=== PATIENT | female | born 1965 ===

== ENCOUNTER 2020-01-19 15:55 | Outpatient (REF) | payer OTHER, SELFPAY ==
--- NOTE | 2020-01-19 | XR_ITS ---
EXAMINATION: XR HAND, BILATERAL CLINICAL INFORMATION: Polyarthralgia COMPARISON: None TECHNIQUE: 3 views of each hand FINDINGS: Bone mineralization is normal. No periarticular osteopenia or erosions. No significant joint space narrowing. No suspicious soft tissue calcifications. No acute osseous abnormalities. IMPRESSION: Right hand: Normal. Left hand: Normal.
--- NOTE | 2020-01-19 | XR_ITS ---
EXAMINATION: XR TIBIA AND FIBULA, RIGHT CLINICAL INFORMATION: Polyarthralgia COMPARISON: None TECHNIQUE: AP and lateral views of the right lower leg FINDINGS: Bone mineralization is normal. No fracture. No focal osseous lesion or suspicious soft tissue calcification. IMPRESSION: Normal right lower leg.
== END 2020-01-19 15:56 | disposition home or self-care (01) ==
LOC: HO.XRAY 15:55
PROVIDERS: PCP Internal Medicine; Visit Provider Student in an Organized Health Care Education/Training Program
DX: M25.59 Pain in other specified joint (principal)
CPT/HCPCS: 73130; 73590

== ENCOUNTER → 2020-01-20 14:35 | Outpatient (BNVA) | payer OTHER, SELFPAY | PROVIDERS: PCP Internal Medicine; Visit Provider Student in an Organized Health Care Education/Training Program | DX: M79.642 Pain in left hand (principal); M79.641 Pain in right hand; M79.661 Pain in right lower leg | CPT/HCPCS: 99213 ==

== ENCOUNTER 2021-08-28 09:53 | Outpatient (REF) | payer OTHER, SELFPAY ==
--- NOTE | ~2021-08-28 | MM_ITS ---
EXAMINATION: BONE DENSITOMETRY CLINICAL INDICATION: Asymptomatic menopausal state. COMPARISON: None (current study represents initial baseline exam). TECHNIQUE: Using a [employer]i DXA System (software version: 13.1) manufactured by [employer], dual-energy x-ray absorptiometry was performed of the lumbar spine and left hip. The images are of good technical quality. Summary results are attached. FINDINGS: AP SPINE L1-L4: BMD 1.070 g/cm2, Z-score -0.4, T-score -0.9, normal. LEFT FEMUR, NECK: BMD 1.078 g/cm2, Z-score 1.1, T-score 0.3, normal. LEFT FEMUR, TOTAL: BMD 1.153 g/cm2, Z-score 1.6, T-score 1.2, normal. IDENTIFIED RISK FACTORS: Menopause. HISTORY OF FRACTURE: None listed. MEDICATIONS: Calcium supplements or multivitamin, vitamin D. MM/XR DEXA axial skeleton IMPRESSION: 1. DIAGNOSIS: Normal bone density based on the lowest T-score value of -0.9 in the lumbar spine applying World Health Organization criteria. 2. 10-YEAR FRACTURE RISK PREDICTION, FRAX: According to the guidelines, FRAX calculation should only be performed on patients in the osteopenia bone density category. Therefore, FRAX was not performed on this patient. 3. Treatment Recommendations: NOF guidelines recommend consideration for treatment in postmenopausal women and men age 50 and older presenting with the following: -A hip or vertebral (clinical or morphometric) fracture. -T-score less than or equal to -2.5 at the femoral neck or spine after appropriate evaluation to exclude secondary causes. -Low bone mass at the hip or spine and a 10-year fracture probability by FRAX of greater than or equal to 3% for hip fracture or greater than or equal to 20% for major osteoporotic fracture based on the [place] adapted WHO algorithm. 4. Other Recommendations: All treatment decisions require clinical judgment and consideration of individual patient factors, including patient preferences, comorbidities, previous drug use, risk factors not captured in the FRAX model (e.g. frailty, falls, vitamin D deficiency, increased bone turnover, interval significant decline in bone density) and possible under or overestimation of fracture risk by FRAX. FUTURE SCAN RECOMMENDATION: People with diagnosed cases of osteoporosis or at high risk for fracture should have regular bone mineral density tests. For patients eligible for Medicare, routine testing is allowed once every 2 years. The testing frequency can be increased to one year for patients who have rapidly progressing disease, those who are receiving or discontinuing medical therapy to restore bone mass, or have additional risk factors.
--- NOTE | ~2021-08-28 | MM_ITS ---
EXAMINATION: MM SCREENING DIGITAL BREAST TOMOSYNTHESIS, BILATERAL CLINICAL INFORMATION: Screening. Asymptomatic. The lifetime risk of breast cancer based on the Tyrer-Cuzick Model is 9%. COMPARISON: Mammography: 08/19/2016, 06/13/2015, 05/25/2012 TECHNIQUE: Digital breast tomosynthesis is performed in both the craniocaudal and mediolateral oblique views along with computer-aided detection (CAD). Synthesized 2D images are generated from the tomosynthesis. Additional left cleavage view is provided. FINDINGS: The breasts are almost entirely fatty (ACR BI-RADS breast composition Category a). There are no significant masses, abnormal calcifications, or other abnormalities. Background stromal markings are stable. No developing density. No architectural abnormality. No significant changes. MM/MM tomosynthesis screening BI IMPRESSION: No mammographic evidence of malignancy. ASSESSMENT: BI-RADS 1: Negative RECOMMENDATION: Routine annual mammography screening. This patient's information was entered into a reminder system with a target due date for their next mammogram.
== END 2021-08-28 09:54 | disposition home or self-care (01) ==
LOC: HO.MAMMO 09:53
PROVIDERS: Visit Provider Internal Medicine
DX: Z12.31 Encounter for screening mammogram for malignant neoplasm of breast (principal); Z13.820 Encounter for screening for osteoporosis; Z78.0 Asymptomatic menopausal state
CPT/HCPCS: 77063; 77067; 77080

== ENCOUNTER → 2021-11-07 10:15 | Outpatient (BNVA) | payer OTHER, SELFPAY | PROVIDERS: PCP Internal Medicine; Visit Provider Physician Assistant | DX: Z12.11 Encounter for screening for malignant neoplasm of colon (principal); K21.9 Gastro-esophageal reflux disease without esophagitis | CPT/HCPCS: 99202; 99212 ==

== ENCOUNTER 2022-03-27 08:33 | Day surgery (SDC) | payer OTHER, SELFPAY ==
[2022-03-21 11:30] VITALS: BMI 25.0
--- NOTE | 2022-03-26 11:59 | HO.ANESPROP2 ---
Documented by User: Arlene Thomas NP 03/26/22 11:59 HPI - Anesthesia Eval Consult details Narrative: 56yo F for Colonoscopy PMFSH Active Problems Active Problems: All Active Problems (Updated 11/08/21 @ 15:17 by Jessica Truong PA-C) Colon cancer screening (Acute) Overweight (BMI 25.0-29.9) (Acute) GERD (gastroesophageal reflux disease) (Acute) Asthma (Acute) Allergic rhinitis (Acute) Right ear pain (Acute) Annual physical exam (Acute) Bilateral pendulous breasts (Acute) Chronic pain of both shoulders (Acute) Chronic thoracic back pain (Acute) Polyarthralgia (Acute) Past Medical History Medical History Allergic rhinitis Asthma GERD (gastroesophageal reflux disease) Overweight (BMI 25.0-29.9) Family History Family History Father Hypertension Mother Hypertension Asthma Family/Other Prostate cancer Colon cancer Lung cancer Stomach cancer Surgical History Surgical History History of cholecystectomy History of colposcopy History of esophagogastroduodenoscopy (EGD) Social History Social History Household Members: Spouse Housing: House Are you a primary healthcare recruiter to a significant other at home: No Do you presently have visiting nurse or other home services: No Alcohol intake: never Patient Tobacco Use Status: Never used Tobacco Second Hand Smoke Exposure: No Use of substances other than those prescribed or required for medical reasons: No Have you been hit, kicked, punched, or otherwise hurt by someone within the past year? If so, by whom?: No Are you DNR?: No Advance Directives: No Advance Directives Information Provided: Yes Advance Directives on File: No Recently lost weight without trying: No Nutrition Risks: No Nutritional Risk service: No Current occupational status: disabled Cognitive needs: No Hearing needs: No Vision needs: Yes Meds Allergies Allergy/AdvReac Type Severity Reaction Status Date / Time dicyclomine Allergy Severe ANAPHYLAXIS Verified 03/21/22 11:28 coconut oil Allergy Unknown Unknown Verified 11/07/21 10:46 house dust Allergy Unknown unknown Verified 11/07/21 10:46 pollen extracts Allergy Unknown Unknown Verified 11/07/21 10:46 cimetidine [From TAGAMET] AdvReac Intermediate NAUSEA AND Verified 03/21/22 11:28 VOMITING sucralfate [Carafate] AdvReac Intermediate Abdominal Verified 03/21/22 11:29 Pain apple, kiwi,pears, peach, Allergy Unknown Unknown Uncoded 11/07/21 10:46 avoc fruits Allergy Unknown Unknown Uncoded 11/07/21 10:46 soil Allergy Unknown Unknown Uncoded 11/07/21 10:46 Simethicone AdvReac Intermediate cramping, Uncoded 03/21/22 11:29 abdominal Home Medications Medication Instructions Recorded Confirmed Last Taken Type diphenhydramine HCl 25 mg tablet 25 mg PO Q6H PRN Allergy Symptoms 01/19/20 03/21/22 Unknown History (Benadryl Allergy) epinephrine 0.3 mg/0.3 mL 0.3 mg IM Q10M PRN Allergic 01/19/20 03/21/22 Unknown History injection, auto-injector (EpiPen) Reaction hydroxyzine pamoate 25 mg capsule 25 mg PO TID 01/19/20 07/19/21 Unknown History (Vistaril) ketotifen fumarate 0.025 % (0.035 1 drp ophthalmic (eye) BID 01/19/20 07/19/21 Unknown History %) eye drops (Allergy Eye (ketotifen)) omeprazole 20 mg tablet,delayed 20 mg PO DAILY 01/19/20 03/21/22 Unknown History release Exam Exam Date and Time: March 26, 2022 1159 Height,Weight and Vital Signs: Height 5 ft 5 in Weight 68.039 kg Assessment and Plan Assessment Anesthesia Assessment: Chart Reviewed Documented by User: Yahaira Rivers MD 03/27/22 08:56 PMFSH Past Medical History Medical History Allergic rhinitis Asthma GERD (gastroesophageal reflux disease) Overweight (BMI 25.0-29.9) Functional capacity: independent ambulation Patient : No Family History Family History Father Hypertension Mother Hypertension Asthma Family/Other Prostate cancer Colon cancer Lung cancer Stomach cancer Family history of problems with anesthesia: No Surgical History Surgical History History of cholecystectomy History of colposcopy History of esophagogastroduodenoscopy (EGD) History of Problems with Anesthesia: No Social History Social History Household Members: Spouse Housing: House Are you a primary healthcare recruiter to a significant other at home: No Do you presently have visiting nurse or other home services: No Alcohol intake: never Patient Tobacco Use Status: Never used Tobacco Second Hand Smoke Exposure: No Use of substances other than those prescribed or required for medical reasons: No Have you been hit, kicked, punched, or otherwise hurt by someone within the past year? If so, by whom?: No Are you DNR?: No Advance Directives: No Advance Directives Information Provided: Yes Advance Directives on File: No Recently lost weight without trying: No Nutrition Risks: No Nutritional Risk service: No Current occupational status: disabled Cognitive needs: No Hearing needs: No Vision needs: Yes Meds Allergies Allergy/AdvReac Type Severity Reaction Status Date / Time dicyclomine Allergy Severe ANAPHYLAXIS Verified 03/21/22 11:28 coconut oil Allergy Unknown Unknown Verified 11/07/21 10:46 house dust Allergy Unknown unknown Verified 11/07/21 10:46 pollen extracts Allergy Unknown Unknown Verified 11/07/21 10:46 cimetidine [From TAGAMET] AdvReac Intermediate NAUSEA AND Verified 03/21/22 11:28 VOMITING sucralfate [Carafate] AdvReac Intermediate Abdominal Verified 03/21/22 11:29 Pain apple, kiwi,pears, peach, Allergy Unknown Unknown Uncoded 11/07/21 10:46 avoc fruits Allergy Unknown Unknown Uncoded 11/07/21 10:46 soil Allergy Unknown Unknown Uncoded 11/07/21 10:46 Simethicone AdvReac Intermediate cramping, Uncoded 03/21/22 11:29 abdominal Home Medications Medication Instructions Recorded Confirmed Last Taken Type diphenhydramine HCl 25 mg tablet 25 mg PO Q6H PRN Allergy Symptoms 01/19/20 03/21/22 Unknown History (Benadryl Allergy) epinephrine 0.3 mg/0.3 mL 0.3 mg IM Q10M PRN Allergic 01/19/20 03/21/22 Unknown History injection, auto-injector (EpiPen) Reaction hydroxyzine pamoate 25 mg capsule 25 mg PO TID 01/19/20 07/19/21 Unknown History (Vistaril) ketotifen fumarate 0.025 % (0.035 1 drp ophthalmic (eye) BID 01/19/20 07/19/21 Unknown History %) eye drops (Allergy Eye (ketotifen)) omeprazole 20 mg tablet,delayed 20 mg PO DAILY 01/19/20 03/21/22 Unknown History release Exam Airway Mallampati Class: II TM Dist: >3cm Neck ROM: Full Heart: RRR Lungs: CTA Assessment and Plan Final Anesthetic Review Family History of Problems with Anesthesia: No History of Problems with Anesthesia: No ASA Class: II Final Preanesthetic Review: No Changes in Pt Med Stat, Meds/Allgs Chart Reviewed, Consent Obtained/Reviewed and Anes Risks/Benef Reviewed Patient Risk: Low Procedure Risk: Low Anesthetic Plan Anesthetic Plan: MAC: Disposition: Standard PACU
--- NOTE | 2022-03-27 08:49 | MHC.SHP ---
Pre-Procedural Eval Section A Date of Service: 03/27/22 Section B Chief Complaint: screening Details of Present Illness: 56 y.o F here for screening colo. No GI sx. Fam hx of breast cancer and colon cancer (grandmother). Present Medications: see Short Stay Collaborative assessment Medical History: Significant History (GERD, asthma, allergic rhinitis) History of Previous Operations: Relevant previous surgery/procedure and date(s) (Cholecystectomy, colposcopy ) Allergies: Allergies Allergy/AdvReac Type Severity Reaction Status Date / Time dicyclomine Allergy Severe ANAPHYLAXIS Verified 03/21/22 11:28 coconut oil Allergy Unknown Unknown Verified 11/07/21 10:46 house dust Allergy Unknown unknown Verified 11/07/21 10:46 pollen extracts Allergy Unknown Unknown Verified 11/07/21 10:46 cimetidine [From TAGAMET] AdvReac Intermediate NAUSEA AND Verified 03/21/22 11:28 VOMITING sucralfate [Carafate] AdvReac Intermediate Abdominal Verified 03/21/22 11:29 Pain apple, kiwi,pears, peach, Allergy Unknown Unknown Uncoded 11/07/21 10:46 avoc fruits Allergy Unknown Unknown Uncoded 11/07/21 10:46 soil Allergy Unknown Unknown Uncoded 11/07/21 10:46 Simethicone AdvReac Intermediate cramping, Uncoded 03/21/22 11:29 abdominal Review of Systems Review of Systems Comment: 10 point ROS obtained and negative Exam Exam Comment: Gen appear: No acute distress, well nourished HEENT: no icterus Chest: No overt resp distress Abd: soft, nontender, nondistended Psych: Stable affect, answering questions appropriately Neuro: A/Ox3 noted to move all extremities spontaneously Ext: no peripheral edema Plan Diagnosis/Plan: Unchanged I have reviewed the history and physical and performed a pertinent physical examination on my patient. No changes have occurred unless specified.
[2022-03-27 08:54] VITALS: BP 123/87; PULSE 86; RESP 18; TEMP 36.6; O2SAT 96
--- NOTE | 2022-03-27 08:54 | W.PM.OPN ---
Operative Note Operative Note Date of Service: 03/27/22 Narrative: Procedure: Colonoscopy Indication: Screening Endoscopist: Lucy Khan MD Anesthesia Provider: Dr Yahaira Atkins Anesthesia type: MAC Instrument: Olympus [id number]-H190L Consent: Indication, risks vs benefits, and alternatives were discussed with the patient who gave written informed consent to proceed. An automotive repair technician was utilized to assist with the consent. EKG, pulse, pulse oximetry and blood pressure were monitored throughout the procedure. Please see anesthesia flowsheet. Procedure: The patient was brought to the procedure room and placed in the left lateral decubitus position. IV medications were administered by the anesthesia provider in attendance. A digital rectal exam was performed which was normal. The colonoscope was then inserted through the anus and advanced through the colon to the cecum at 75 cm, and terminal ileum. Mucosa was carefully examined under high definition white light as the instrument was slowly withdrawn in a retrograde panoramic fashion. Retroflexion was performed in rectum. The procedure was not difficult. There were no immediate obvious complications. The quality of the prep was BBPS: 3+3+3 = excellent Withdrawal time 9 minutes. Limitations: No limitations. Findings: Mucosa: Normal to cecum and terminal ileum. Protruding lesions: Small internal hemorrhoids without stigmata of recent bleeding. Impression: 1. Normal colon and terminal ileum mucosa 2. Internal hemorrhoids Recommendations: - Repeat colonoscopy in 10 years for colorectal cancer screening
[2022-03-27] MEDS: Lactated Ringers 1,000 ML 100 ML IVCONT (08:55)
[2022-03-27 09:45] VITALS: BP 93/52; PULSE 83; RESP 15; TEMP 36.2; O2SAT 100
[2022-03-27 10:00] VITALS: BP 105/63; PULSE 76; RESP 15; O2SAT 95
[2022-03-27 10:18] VITALS: TEMP 36.4
--- NOTE | 2022-03-27 10:25 | HO.POSTANES ---
Post Anesthesia Evaluation Post Anesthesia Evaluation Vital Signs: Vital Signs Temp Pulse Resp BP Pulse Ox O2 Del Method O2 Flow Rate 03/27/22 10:18 97.5 F 03/27/22 10:00 76 15 105/63 95 Room Air 03/27/22 09:45 97.1 F 83 15 93/52 L 100 Nasal Cannula with ETCO2 3 03/27/22 08:54 97.8 F 86 18 123/87 96 Room Air Anesthesia: Monitored Mental Status: Awake Pain Control: Satisfactory Nausea/Vomiting: None Hydration: Adequate Anesthesia-Related Issues: No Anes. Related Issues
== END 2022-03-27 10:55 ==
LOC: HO.SSS 08:33
PROVIDERS: PCP Internal Medicine; Visit Provider Internal Medicine
PROC: 0DJD8ZZ Inspection of Lower Intestinal Tract, Via Natural or Artificial Opening Endoscopic (ICD-10-PCS; CPT 45378; principal; 2022-03-27 09:00)
DX: Z12.11 Encounter for screening for malignant neoplasm of colon (principal); K64.8 Other hemorrhoids; K21.9 Gastro-esophageal reflux disease without esophagitis; J45.909 Unspecified asthma, uncomplicated; Z79.51 Long term (current) use of inhaled steroids; Z79.899 Other long term (current) drug therapy; Z88.8 Allergy status to other drugs, medicaments and biological substances; Z90.49 Acquired absence of other specified parts of digestive tract
CPT/HCPCS: 45378

== ENCOUNTER → 2022-04-24 10:22 | Outpatient (BNVA) | payer OTHER, SELFPAY | PROVIDERS: PCP Internal Medicine; Visit Provider Physician Assistant | DX: K21.9 Gastro-esophageal reflux disease without esophagitis (principal); K58.9 Irritable bowel syndrome, unspecified; K44.9 Diaphragmatic hernia without obstruction or gangrene | CPT/HCPCS: 99212 ==

== ENCOUNTER 2022-09-05 10:42 | Outpatient (REF) | payer OTHER, SELFPAY ==
--- NOTE | ~2022-09-05 | MM_ITS ---
EXAMINATION: MM SCREENING DIGITAL BREAST TOMOSYNTHESIS, BILATERAL CLINICAL INFORMATION: Screening. Asymptomatic. The lifetime risk of breast cancer based on the Tyrer-Cuzick Model is 9%. COMPARISON: Mammography: 08/28/2021, 08/19/2016, 06/13/2015 TECHNIQUE: Digital breast tomosynthesis is performed in both the craniocaudal and mediolateral oblique views along with computer-aided detection (CAD). Synthesized 2D images are generated from the tomosynthesis. FINDINGS: The breasts are almost entirely fatty (ACR BI-RADS breast composition Category a). Background stromal markings are similar to prior studies. No developing density or architectural abnormality. There are no significant masses, abnormal calcifications, or other abnormalities. The axilla and skin contours are unremarkable. MM/MM tomosynthesis screening BI IMPRESSION: No mammographic evidence of malignancy. ASSESSMENT: BI-RADS 1: Negative RECOMMENDATION: Routine annual mammography screening. This patient's information was entered into a reminder system with a target due date for their next mammogram.
== END 2022-09-05 10:43 | disposition home or self-care (01) ==
LOC: HO.MAMMO 10:42
PROVIDERS: PCP Internal Medicine; Visit Provider Internal Medicine
DX: Z12.31 Encounter for screening mammogram for malignant neoplasm of breast (principal)
CPT/HCPCS: 77063; 77067

== ENCOUNTER 2023-01-19 12:12 | Outpatient (AMB) | payer OTHER, SELFPAY ==
[2023-01-19 12:32] VITALS: BP 120/82; PULSE 74; O2SAT 97; BMI 25.6
--- NOTE | 2023-01-19 12:32 | MHC.PC.OV ---
Vital Signs 01/19/23 12:32 Height 5 ft 5 in Weight 154 lb 2 oz BMI 25.6 BP 120/82 Blood Pressure Location Lt brachial Position Sitting Pulse 74 Pulse Source Pulse Oximeter Pulse Oximetry (%) 97 Oxygen Delivery Method Room Air Intake Visit Reasons: breast reduction Head Of Science Required: No Accompanied by: Self / Same As Patient Allergies dicyclomine Allergy (Severe, Verified 01/25/23 23:19) ANAPHYLAXIS coconut oil Allergy (Unknown, Verified 01/25/23 23:19) Unknown house dust Allergy (Unknown, Verified 01/25/23 23:19) unknown pollen extracts Allergy (Unknown, Verified 01/25/23 23:19) Unknown cimetidine [From TAGAMET] Adverse Reaction (Intermediate, Verified 01/25/23 23:19) NAUSEA AND VOMITING sucralfate [Carafate] Adverse Reaction (Intermediate, Verified 01/25/23 23:19) Abdominal Pain apple, kiwi,pears, peach, avoc Allergy (Unknown, Uncoded 01/25/23 23:19) Unknown fruits Allergy (Unknown, Uncoded 01/25/23 23:19) Unknown soil Allergy (Unknown, Uncoded 01/25/23 23:19) Unknown Simethicone Adverse Reaction (Intermediate, Uncoded 01/25/23 23:19) cramping, abdominal Medication List - Last Reconciled 01/26/23 by Gabriel Vang MD albuterol sulfate 90 mcg/actuation (ProAir HFA) 2 puffs inhalation Q6H PRN 30 days cetirizine 10 mg PO DAILY PRN 90 days cyclobenzaprine 10 mg PO TID PRN 30 days diphenhydramine HCl (Benadryl Allergy) 25 mg PO Q6H PRN epinephrine (EpiPen) 0.3 mg (0.3 mL) IM Q10M PRN fluticasone propionate 110 mcg/actuation (Flovent HFA) 1 puff inhalation BID 30 days fluticasone propionate 50 mcg/actuation (Flonase Allergy Relief) 1 spray intranasal DAILY hydroxyzine pamoate (Vistaril) 25 mg PO TID PRN ketotifen fumarate 0.025%(0.035%) (Allergy Eye (ketotifen)) 1 drp ophthalmic (eye) BID lansoprazole 30 mg PO DAILY 90 days methylcellulose (laxative) (Citrucel) 500 mg PO TID Tobacco use date assessed: 01/19/23 Dental Screening Dental Screen Date: 01/19/23 Did you have a dental visit in the last 12 months?: Yes Did you have a dental problem in the last 6 months where you did not have access to dental care?: No Was dental information given to patient?: Patient has dentist HPI breast reduction HPI Details Patient comes in today at the request of Dr. Cherry Pearce for a preoperative medical examination for clearance for surgery She is scheduled to undergo bilateral breast reduction surgery under general anesthesia on 02/19/2023 Patient states that she currently feels okay Still has chronic pain over her neck, over both shoulders and on her upper back that she feels are in large part, due to her large and heavy breasts and is hoping that her upcoming surgery will help alleviate a lot of her current pain States that she has a preop appointment with Dr. Pearce coming up in 02/09/2023 She denies any headaches or dizziness Denies any chest pains, no SOB No nausea/vomiting, no abdominal pain No change in bowel habits noted States that she also needs several of her Rx refilled today PFSH Medical History IBS (irritable bowel syndrome) Overweight (BMI 25.0-29.9) GERD (gastroesophageal reflux disease) Asthma Allergic rhinitis Surgical History History of colposcopy History of cholecystectomy History of esophagogastroduodenoscopy (EGD) Family History Father Hypertension Mother Hypertension Asthma Family/Other Prostate cancer Colon cancer Lung cancer Stomach cancer Social History Household Members: Spouse Housing: House Are you a primary child care director to a significant other at home: No Do you presently have visiting nurse or other home services: No Alcohol intake: never Patient Tobacco Use Status: Never used Tobacco Second Hand Smoke Exposure: No service: No Current occupational status: disabled Cognitive needs: No Hearing needs: No Vision needs: Yes Questionnaire PHQ-9 Over the last 2 weeks, how often have you been bothered by any of the following problems? 1. Little interest or pleasure in doing things: not at all 2. Feeling down, depressed, or hopeless: not at all 3. Trouble falling or staying asleep, or sleeping too much: not at all 4. Feeling tired or having little energy: not at all 5. Poor appetite or overeating: not at all 6. Feeling bad about yourself - or that you are a failure or have let yourself or your family down: not at all 7. Trouble concentrating on things, such as reading the newspaper or watching television: not at all 8. Moving or speaking so slowly that other people could have noticed. Or the opposite - being so fidgety or restless that you have been moving around a lot more than usual: not at all 9. Thoughts that you would be better off or of hurting yourself in some way: not at all Total score: 0 Depression Screening Interpretation: Negative 38488 - PHQ-9 Billing: Yes Source: Developed by Drs. Rowdy Quinn, Fanny Grant, Masood Arellano and colleagues, with an educational juventino from [employer]. Thrive Questionnaire Date Thrive assessed: 01/19/23 I am a: Patient What is your living situation today?: I have a steady place to live Within the past 12 months, did the food you bought not last and you didn't have the money to get more?: Never true Within the past 12 months, did you worry whether your food would run out before you got money to buy more?: Never true Do you have trouble paying for medicines?: No Do you have trouble getting transportation to medical appointments?: No Do you have trouble paying your heating and electricity bill?: No Do you have trouble taking care of your child, family member or friend?: No Do you have trouble with day-to-day activities such as bathing, preparing meals, shopping, managing finances, etc.?: No Are you currently unemployed and looking for a job?: No Are you interested in more education?: No Please select the resources that you would like help with: None Currently or been in a relationship where the following occur: no concerns reported AUDIT C Alcohol Use Questionnaire (AUDIT-C) 1. How often do you have a drink containing alcohol?: Never 3. How often do you have six or more drinks on one occasion?: Never Total Score: 0 Score Reviewed/Action Taken: Yes ANNE-MARIE-7 AMB Questionnaire ANNE-MARIE-7 Date ANNE-MARIE - 7 assessed: 01/19/23 Feeling nervous, anxious, or on edge: 0 = Not at all Not being able to stop or control worryin = Not at all Worrying too much about different things: 0 = Not at all Trouble relaxin = Not at all Being so restless that it is hard to sit still: 0 = Not at all Becoming easily annoyed or irritable: 0 = Not at all Feeling afraid as if something awful might happen: 0 = Not at all Total ANNE-MARIE-7 score (0-4 normal; 5-9 mild; 10-14 moderate; 15-21 severe): 0 Source: Developed by Drs. Rowdy Quinn, Fanny Grant, aMsood Arellano and colleagues, with an educational juventino from [employer]. Review of Systems Const Denies chills, Denies fatigue, Denies fever(s) and Denies headache(s) ENT Denies dysphagia, Denies dizziness, Denies otalgia, Denies headache(s), Reports neck pain, Denies odynophagia and Denies sore throat Card Denies chest pain, Denies palpitations and Denies dyspnea Resp Denies cough and Denies dyspnea GI Denies abdominal pain, Denies constipation, Denies dysphagia, Denies heartburn, Denies diarrhea, Denies nausea, Denies odynophagia and Denies vomiting Denies difficulty voiding, Denies nocturia and Denies dysuria Musc Reports back pain, Reports arthralgias (bilateral shoulders) and Reports neck pain Neuro Denies dizziness and Denies headache(s) Endo Denies fatigue and Denies palpitations Physical exam (Primary Care) Vital Signs: Last Vital Signs Pulse 74 01/19/23 12:32 BP 120/82 01/19/23 12:32 Pulse Ox 97 01/19/23 12:32 Oxygen Delivery Method Room Air 01/19/23 12:32 BMI result Body Mass Index 25.6 Tobacco/Smoking Status: Tobacco use Status Tobacco use date assessed 01/19/23 01/19/23 12:43 Patient Tobacco Use Status Never used Tobacco 01/19/23 12:43 PHQ-9: PHQ-9 Score PHQ-9: Total score 0 01/19/23 12:59 Depression Screening Interpretation: Negative Thrive Assessment: Date of Thrive Assessment Date Thrive assessed 01/19/23 01/19/23 12:43 Currently or been in a relationship where the following occur: no concerns reported Const General: no acute distress and alert HENMT Ears: TM's normal bilaterally and EAC's normal Throat: Yes posterior oropharynx normal and Yes tonsils normal (no TP congestion) Neck Neck: Yes no lymphadenopathy and Yes tender (over the paraspinal cervical muscles) Resp Auscultation: clear to auscultation bilaterally, no rales and no wheezes Cardio Rate: regular rate Rhythm: regular rhythm Heart sounds: no murmurs GI Palpation (GI): Soft to palpation and nontender Auscultation: normal bowel sounds Back/Spine/Pelvis Thoracic/Lumbar Spine: paraspinal muscle tenderness bilaterally (over the trapezius muscles bilaterally) in the upper thoracic and in the mid thoracic Skin Rashes: no rashes Extrem General: Yes no clubbing, cyanosis or edema Office Procedures Flu Questionnaire Does the patient have a severe egg allergy?: No Immunizations flu vacc [id number] 6mos up(PF) 60 mcg(15 mcgx4)/0.5 mL IM syringe Performing Provider: Gabriel Vang MD [facility] Documented (not given) by: Vikash Ortega on 01/19/23 12:45 Reason Not Given: Patient Refused Assessment and Plan Assessment & Plan (1) Preoperative examination: Code(s): Z01.818 - Encounter for other preprocedural examination Plan: Patient presents with acceptable risks for planned low cardiac risk procedure Will send her for some preop labs and EKG for further evaluation (2) Bilateral pendulous breasts: Code(s): N64.89 - Other specified disorders of breast Plan: She is scheduled for bilateral breast reduction surgery under general anesthesia with Dr. Cherry Pearce on 02/19/2023 (3) Asthma: Code(s): J45.909 - Unspecified asthma, uncomplicated Qualifiers: Asthma severity: moderate Asthma persistence: persistent Asthma complication type: uncomplicated Qualified Code(s): J45.40 - Moderate persistent asthma, uncomplicated Plan: Stable Continue Flovent 110 mcg 1 inhalation BID and Albuterol HFA 1 to 2 inhalations Q 6 hours as needed (4) Allergic rhinitis: Code(s): J30.9 - Allergic rhinitis, unspecified Qualifiers: Allergic rhinitis trigger: pollen Allergic rhinitis seasonality: seasonal Qualified Code(s): J30.1 - Allergic rhinitis due to pollen Plan: Continue Cetirizine 10 mg QD PRN and Fluticasone 50 mcg nasal spray QD PRN (5) GERD (gastroesophageal reflux disease): Comment: well controlled with ppi Discussed need for repeat-prior to colonoscopy at that time she declined-no worsening acid reflux, weight gain likely plays a role mod HH Reflux precautions, avoid culprits Code(s): K21.9 - Gastro-esophageal reflux disease without esophagitis Qualifiers: Esophagitis presence: without esophagitis Qualified Code(s): K21.9 - Gastro-esophageal reflux disease without esophagitis Plan: Dietary restrictions reinforced Continue Lansoprazole 30 mg QD; patient failed to respond to Omeprazole in the past (6) Polyarthralgia: Code(s): M25.50 - Pain in unspecified joint Plan: Follow up with rheumatology as scheduled (7) Chronic pain of both shoulders: Code(s): M25.511 - Pain in right shoulder; M25.512 - Pain in left shoulder; G89.29 - Other chronic pain Plan: Most likely due to fibromyalgia as well as due to her pendulous breasts Encouraged to try exercising regularly to help manage her fibromyalgia symptoms better Is hoping that her symptoms will improve once she gets her breast reduction surgery done (8) Chronic thoracic back pain: Code(s): M54.6 - Pain in thoracic spine; G89.29 - Other chronic pain Qualifiers: Back pain laterality: bilateral Qualified Code(s): M54.6 - Pain in thoracic spine; G89.29 - Other chronic pain Plan: Most likely due to fibromyalgia as well as her pendulous breasts Continue Cyclobenzaprine 10 mg TID PRN Will be getting breast reduction surgery next month and is hoping that this will help alleviate a lot of her recurrent neck pain, upper back pain and bilateral shoulder pain (9) Overweight (BMI 25.0-29.9): Code(s): E66.3 - Overweight Plan: Reinforced diet/exercise as tolerated/lose weight Plan Final clearance will be provided once patient gets her labs and EKG done and her results are available to review To return in July 2023 for her annual physical examination Orders: Orders Influenza [id number] Immunization 01/19/23 Z23 - Encounter for immunization Complete Blood Count Auto Diff 01/19/23 Z01.818 - Encounter for other preprocedural examination Comprehensive Met. Panel 01/19/23 Z.818 - Encounter for other preprocedural examination Partial Thromboplastin Time 01/19/23 Z.818 - Encounter for other preprocedural examination UA CC w/rflx Micro + Cult 01/19/23 Z.818 - Encounter for other preprocedural examination Prothrombin Time INR 01/19/23 Z01.818 - Encounter for other preprocedural examination ECG 12 lead EKG 01/19/23 Z.818 - Encounter for other preprocedural examination Medications: New epinephrine (EpiPen) for 2 doses 0.3 mg (0.3 mL) IM Q10M PRN 2 ea 1RF Allergic Reaction Changed From hydroxyzine pamoate (Vistaril) 25 mg PO TID To hydroxyzine pamoate (Vistaril) 25 mg PO TID PRN 90 caps 5RF anxiety Refilled lansoprazole 30 mg PO DAILY 90 days 90 caps 3RF fluticasone propionate 110 mcg/actuation (Flovent HFA) 1 puff inhalation BID 30 days 12 grams 5RF albuterol sulfate 90 mcg/actuation (ProAir HFA) 2 puffs inhalation Q6H 30 days PRN 8.5 grams 5RF shortness of breath or wheezing cyclobenzaprine 10 mg PO TID 30 days PRN 90 tabs 2RF muscle spasms/pain Coding Level of Care Code Est Pt Level 4 (51853) Diagnoses Preoperative examination Z.8 Bilateral pendulous breasts N64.89 Moderate persistent asthma without complication J45.40 Asthma severity: moderate Asthma persistence: persistent Asthma complication type: uncomplicated Seasonal allergic rhinitis due to pollen J30.1 Allergic rhinitis trigger: pollen Allergic rhinitis seasonality: seasonal Gastroesophageal reflux disease without esophagitis K21.9 Esophagitis presence: without esophagitis Polyarthralgia M25.50 Chronic pain of both shoulders M25.511; M25.512; G89.29 Chronic bilateral thoracic back pain M54.6; G89.29 Back pain laterality: bilateral Overweight (BMI 25.0-29.9) E66.3
== END 2023-01-19 13:07 | disposition home or self-care (01) ==
PROVIDERS: PCP Internal Medicine; Visit Provider Internal Medicine
DX: J45.40 Moderate persistent asthma, uncomplicated (principal); Z01.818 Encounter for other preprocedural examination; N64.89 Other specified disorders of breast; J30.1 Allergic rhinitis due to pollen; K21.9 Gastro-esophageal reflux disease without esophagitis; M25.50 Pain in unspecified joint; M25.511 Pain in right shoulder; M25.512 Pain in left shoulder; G89.29 Other chronic pain; M54.6 Pain in thoracic spine; E66.3 Overweight
CPT/HCPCS: 99214

== ENCOUNTER → 2023-01-19 13:14 | Outpatient (REF) | payer OTHER, SELFPAY ==
--- NOTE | 2023-01-19 13:26 | ECG_ITS ---
Test Reason : z01.818 Blood Pressure : / mmHG Vent. Rate : 067 BPM Atrial Rate : 067 BPM P-R Int : 146 ms QRS Dur : 086 ms QT Int : 408 ms P-R-T Axes : 038 063 039 degrees QTc Int : 431 ms Normal sinus rhythm Normal ECG When compared with ECG of 18-JUN-2002 23:31, Vent. rate has decreased BY 51 BPM Referred By: Gabriel Vang Electronically Signed By:JOANNA GIVENS
[2023-01-19 13:46] LABS: MANUAL DIFF FLAG NO
[2023-01-19 14:15] LABS: Basophils Percent Auto 0.4 % (0-2); Eosinophils Absolute Auto 0.1 X10*3/uL (0.0-0.4); Eosinophils Percent Auto 0.8 % (0-4); Hematocrit 40.7 % (37.0-47.0); Hemoglobin 13.7 g/dl (12.0-16.0); Imm Gran Abs Auto 0.02 X10*3/uL (0.00-0.03); Imm Gran Pct Auto 0.3 % (0.0-0.4); Lymphocytes Absolute Auto 2.4 X10*3/uL (1.2-4.9); Lymphocytes Percent Auto 32.8 % (20-40); Mean Corpuscular HGB Conc 33.7 g/dl (31.0-35.0); Mean Corpuscular Hemoglobin 30.1 pg (27.0-33.0); Mean Corpuscular Volume 89.5 fL (80.0-98.0); Mean Platelet Volume 10.3 fL (9.4-12.3); Monocytes Absolute Auto 0.6 X10*3/uL (0.1-1.2); Monocytes Percent Auto 7.7 % (2-11); Neutrophils Absolute Auto 4.2 x10*3/uL (2.0-8.3); Platelet Count 356 X10*3/uL (160-400); Red Blood Count 4.55 X10*6/uL (4.20-5.50); Red Cell Distribution Width 13.6 % (11.0-16.0); White Blood Count 7.3 X10*3/uL (4.8-10.8)
[2023-01-19 14:35] LABS: Partial Thromboplastin Time 28.1 SEC (26.0-36.4)
[2023-01-19 15:06] LABS: Alanine Aminotransferase 28 U/L (0-31); Albumin Level 4.3 g/dL (3.5-5.0); Alkaline Phosphatase 73 U/L (39-117); Anion Gap 12 (12-20); Aspartate Amino Transferase 17 U/L (5-31); Bilirubin Total 0.3 mg/dL (0.0-1.0); Blood Urea Nitrogen 17 mg/dL (9-16); Calcium 9.5 mg/dL (8.4-10.2); Carbon Dioxide 25 mmol/L (22-29); Chloride 107 mmol/L (96-108); Estimated Glomerular Filt Rate > 60; Glucose Random 93 mg/dL (60-115); Potassium 3.8 mmol/L (3.3-5.1); Sodium 140 mmol/L (135-145); Total Protein 7.6 g/dL (6.5-8.0)
[2023-01-19 16:38] LABS: Appearance Urine Clear; Color Urine Yellow; Glucose Urine UA Negative (Negative); Leukocyte Esterase Urine Negative (Negative); Nitrite Urine Negative (Negative); PH 5.5 (5.0-9.0); UMIC TRIGGER UACC YES; Urine Blood Trace (Negative); Urine Ketones Negative (Negative); Urine Protein Negative (Neg-Trace)
[2023-01-19 16:47] LABS: Bacteria Urine None Seen (None Seen); Hyaline Casts Urine 0-2 /LPF (0-2); RBC Urine 0-2 /HPF (0-2); Squamous Epithelial Cell Urine 0-2 /HPF (0-2); WBC Urine 0-5 /HPF (0-5)
== END ==
LOC: HO.CARD 13:14
PROVIDERS: PCP Internal Medicine; Visit Provider Internal Medicine
DX: Z01.818 Encounter for other preprocedural examination (principal)
CPT/HCPCS: 36415; 80053; 81001; 85025; 85610; 85730; 93005

== ENCOUNTER 2023-07-27 11:30 | Outpatient (AMB) | payer OTHER, SELFPAY ==
[2023-07-27 11:44] VITALS: BP 120/80; PULSE 85; O2SAT 100; BMI 24.3
--- NOTE | 2023-07-27 11:44 | MHC.PC.OV ---
Vital Signs 07/27/23 11:44 Height 5 ft 5 in Weight 146 lb BMI 24.3 BP 120/80 Blood Pressure Location Lt brachial Position Sitting Pulse 85 Pulse Source Pulse Oximeter Pulse Oximetry (%) 100 Oxygen Delivery Method Room Air Intake Visit Reasons: Annual Exam Intake Note: Patient is here today for a physical. Reactor Technician Required: Yes Reactor Technician Language: Hebrew Accompanied by: Daughter Allergies dicyclomine Allergy (Severe, Verified 07/27/23 12:03) ANAPHYLAXIS coconut oil Allergy (Unknown, Verified 07/27/23 12:03) Unknown house dust Allergy (Unknown, Verified 07/27/23 12:03) unknown pollen extracts Allergy (Unknown, Verified 07/27/23 12:03) Unknown cimetidine [From TAGAMET] Adverse Reaction (Intermediate, Verified 07/27/23 12:03) NAUSEA AND VOMITING sucralfate [Carafate] Adverse Reaction (Intermediate, Verified 07/27/23 12:03) Abdominal Pain apple, kiwi,pears, peach, avoc Allergy (Unknown, Uncoded 07/27/23 12:03) Unknown fruits Allergy (Unknown, Uncoded 07/27/23 12:03) Unknown soil Allergy (Unknown, Uncoded 07/27/23 12:03) Unknown Simethicone Adverse Reaction (Intermediate, Uncoded 07/27/23 12:03) cramping, abdominal Medication List - Last Reconciled 07/27/23 by Gabriel Vang MD cetirizine 10 mg PO DAILY PRN 90 days cyclobenzaprine 10 mg PO TID PRN 30 days diphenhydramine HCl (Benadryl Allergy) 25 mg PO Q6H PRN epinephrine (EpiPen) 0.3 mg (0.3 mL) IM Q10M PRN fluticasone propionate 110 mcg/actuation (Flovent HFA) 1 puff inhalation BID 30 days fluticasone propionate 50 mcg/actuation (Flonase Allergy Relief) 1 spray intranasal DAILY hydroxyzine pamoate (Vistaril) 25 mg PO TID PRN ketotifen fumarate 0.025%(0.035%) (Allergy Eye (ketotifen)) 1 drp ophthalmic (eye) BID lansoprazole 30 mg PO DAILY 90 days methylcellulose (laxative) (Citrucel) 500 mg PO TID mometasone 100 mcg/actuation (Asmanex HFA) 2 puffs inhalation BID Tobacco use date assessed: 07/27/23 Dental Screening Dental Screen Date: 07/27/23 Did you have a dental visit in the last 12 months?: Yes Did you have a dental problem in the last 6 months where you did not have access to dental care?: No Was dental information given to patient?: Patient has dentist HPI Annual Exam HPI Details Patient comes in today for her annual physical examination States that she presently feels okay She denies any headaches or dizziness Denies any chest pains, no SOB No nausea/vomiting, no abdominal pain No change in bowel habits noted She denies any acute urinary symptoms Needs her Flovent HFA Rx refilled She has not had any follow up labs done recently; last had labs done in January 2023 (non-fasting) for her preop exam at the time She is currently also requesting for a referral to podiatry for an ingrown nail over her right big toe She had a normal colonoscopy done on 03/27/[address] Khan - recommend repeat colonoscopy in 10 years (2031) She had a normal mammogram done back on 09/05/2022 and will be due for her yearly exam next month but states that she just had reconstructive nipple surgery with Dr. Pearce a couple of months ago and her breast is still sore Also recalls being advised to avoid any imaging studies for at least 5 months after her surgery She has not had any pap smear or gynecology exam done since 2018 - states that she prefers going back to her corporate statistical financial analyst at [facility] and is advised to reach out to them to schedule her follow up appt [facility] Medical History (Updated 07/27/23 @ 12:39 by Gabriel Vang MD) Pure hypercholesterolemia IBS (irritable bowel syndrome) Overweight (BMI 25.0-29.9) GERD (gastroesophageal reflux disease) Asthma Allergic rhinitis Surgical History (Updated 07/27/23 @ 12:07 by Gabriel Vang MD) Hx of colonoscopy History of colposcopy History of cholecystectomy History of esophagogastroduodenoscopy (EGD) Family History Father Hypertension Mother Hypertension Asthma Family/Other Prostate cancer Colon cancer Lung cancer Stomach cancer Social History Household Members: Spouse Both parents involved: No Caregiver staying overnight: No Housing: House Are you a primary care tech to a significant other at home: No Do you presently have visiting nurse or other home services: No 75 years or older and lives alone: No Alcohol intake: never Patient Tobacco Use Status: Never used Tobacco e-Cigarette/Vaping Use: Never Used Second Hand Smoke Exposure: No service: No Current occupational status: disabled Cognitive needs: No Hearing needs: No Vision needs: Yes Questionnaire PHQ-9 Over the last 2 weeks, how often have you been bothered by any of the following problems? 1. Little interest or pleasure in doing things: not at all 2. Feeling down, depressed, or hopeless: not at all 3. Trouble falling or staying asleep, or sleeping too much: not at all 4. Feeling tired or having little energy: not at all 5. Poor appetite or overeating: not at all 6. Feeling bad about yourself - or that you are a failure or have let yourself or your family down: not at all 7. Trouble concentrating on things, such as reading the newspaper or watching television: not at all 8. Moving or speaking so slowly that other people could have noticed. Or the opposite - being so fidgety or restless that you have been moving around a lot more than usual: not at all 9. Thoughts that you would be better off or of hurting yourself in some way: not at all Total score: 0 Depression Screening Interpretation: Negative Depression Screening Done: Yes 69127 - PHQ-9 Billing: Yes Source: Developed by Drs. Rowdy Quinn, Fanny Grant, Masood Arellano and colleagues, with an educational juventino from [employer]. Thrive Questionnaire Date Thrive assessed: 07/27/23 I am a: Patient What is your living situation today?: I have a steady place to live Within the past 12 months, did the food you bought not last and you didn't have the money to get more?: Never true Within the past 12 months, did you worry whether your food would run out before you got money to buy more?: Never true Do you have trouble paying for medicines?: No Do you have trouble getting transportation to medical appointments?: No Do you have trouble paying your heating and electricity bill?: No Do you have trouble taking care of your child, family member or friend?: No Do you have trouble with day-to-day activities such as bathing, preparing meals, shopping, managing finances, etc.?: No Are you currently unemployed and looking for a job?: No Are you interested in more education?: No Please select the resources that you would like help with: None Currently or been in a relationship where the following occur: no concerns reported THRIVE Score: 0 AUDIT C Alcohol Use Questionnaire (AUDIT-C) 1. How often do you have a drink containing alcohol?: Never 3. How often do you have six or more drinks on one occasion?: Never Total Score: 0 Score Reviewed/Action Taken: Yes ANNE-MARIE-7 AMB Questionnaire ANNE-MARIE-7 Date ANNE-MARIE - 7 assessed: 07/27/23 (Pt on antiexy medication) Feeling nervous, anxious, or on edge: 0 = Not at all Not being able to stop or control worryin = Not at all Worrying too much about different things: 0 = Not at all Trouble relaxin = Not at all Being so restless that it is hard to sit still: 0 = Not at all Becoming easily annoyed or irritable: 0 = Not at all Feeling afraid as if something awful might happen: 0 = Not at all Total ANNE-MARIE-7 score (0-4 normal; 5-9 mild; 10-14 moderate; 15-21 severe): 0 Source: Developed by Drs. Rowdy Quinn, Fanny Grant, Masood Arellano and colleagues, with an educational juventino from [employer]. ANNE-MARIE-7 Assessment Billing ANNE-MARIE-7 Assessment Tool: ANNE-MARIE-7 Assessment [id number] Review of Systems Const Denies chills, Denies fatigue, Denies fever(s), Denies headache(s) and Denies malaise Eyes Denies blurry vision, Denies change in vision, Denies irritation and Denies itchy eyes ENT Denies dysphagia, Denies dizziness, Denies otalgia, Denies headache(s), Denies nasal congestion, Denies neck pain, Denies odynophagia, Denies sinus pain and Denies sore throat Card Denies chest pain, Denies rapid heart rate, Denies irregular heart rhythm, Denies palpitations and Denies dyspnea Resp Denies chest congestion, Denies cough, Denies dyspnea and Denies wheezing GI Denies abdominal pain, Denies bloating, Denies constipation, Denies dysphagia, Denies heartburn, Denies diarrhea, Denies nausea, Denies odynophagia and Denies vomiting Denies hematuria, Denies urinary frequency, Denies dysuria, Denies urinary incontinence and Denies urinary urgency Musc Reports back pain (on and off, due to her fibromyalgia), Reports arthralgias (on and off, involving multiple joints), Denies joint swelling, Denies muscle weakness and Denies neck pain Skin/Breast Details: (+) ingrown and mycotic toenail on right big toe Reports breast pain (soreness of the left breast - had reconstructive surgery done recently), Denies breast mass, Denies change in pigmentation, Denies lesions, Denies rash and Denies unusual bruising Neuro Denies dizziness, Denies headache(s) and Denies paresthesias Psych Denies anxiety and Denies depression Endo Denies fatigue and Denies palpitations Servando/Lymph Denies easy bruising Aller/Immun Denies itchy eyes and Denies wheezing Physical exam (Primary Care) Vital Signs: Last Vital Signs Pulse 85 07/27/23 11:44 BP 120/80 07/27/23 11:44 Pulse Ox 100 07/27/23 11:44 Oxygen Delivery Method Room Air 07/27/23 11:44 BMI result Body Mass Index 24.3 Tobacco/Smoking Status: Tobacco use Status Tobacco use date assessed 07/27/23 07/27/23 11:56 Patient Tobacco Use Status Never used Tobacco 07/27/23 11:45 e-Cigarette/Vaping Use Never Used 07/27/23 11:56 PHQ-9: PHQ-9 Score PHQ-9: Total score 0 07/27/23 11:56 Depression Screening Interpretation: Negative Thrive Assessment: Date of Thrive Assessment Date Thrive assessed 07/27/23 07/27/23 11:56 Currently or been in a relationship where the following occur: no concerns reported Const General: no acute distress, alert and awake Orientation/consciousness: patient oriented x3 HENMT Head: Yes normocephalic and Yes atraumatic Ears: external ears normal, TM's normal bilaterally and EAC's normal General nose exam: No nasal discharge present Face and sinus: Yes normal facial exam and Yes sinuses nontender Teeth and gingiva: dentition normal Throat: Yes posterior oropharynx normal and Yes tonsils normal (no TP congestion) Eyes Eyelids: Yes eyelids normal Conjunctivae: conjunctivae normal Pupils: Equal, round and reactive pupils present EOM: EOMs intact bilaterally Neck Neck: Yes no lymphadenopathy and Yes supple Thyroid: Thyroid normal Resp Auscultation: clear to auscultation bilaterally, no rales and no wheezes Cardio Rate: regular rate Rhythm: regular rhythm Heart sounds: no murmurs GI Palpation (GI): Soft to palpation, nontender and No hepatosplenomegaly present Auscultation: normal bowel sounds General: Yes no CVA tenderness Back/Spine/Pelvis Back: no CVA tenderness Cervical Spine: cervical muscular tenderness and No Cervical spine tenderness Thoracic/Lumbar Spine: paraspinal muscle tenderness bilaterally in the upper thoracic, in the mid thoracic and in the lower thoracic and No lumbar spinal tenderness Skin Lesions: no lesions Rashes: no rashes Neuro General: patient oriented x3, moves all extremities, no focal motor deficits and CN's II-XI intact bilaterally Cranial nerves: Yes Equal, round and reactive pupils present Cognition (Neuro): normal cognition Gait exam (Neuro): Normal gait present Extrem Other: (+) ingrown and onycholysis of the toenail on the right big toe General: Yes no clubbing, cyanosis or edema Right lower extremity: foot Results Reviewed Results Reviewed: Laboratory Tests 01/19/23 01/19/23 13:43 13:44 WBC 7.3 Hgb 13.7 Hct 40.7 Plt Count 356 Sodium 140 Potassium 3.8 Creatinine 0.80 Estimated GFR > 60 Random Glucose 93 Calcium 9.5 AST 17 ALT 28 Ur Specific [place] 1.020 Urine Protein Negative Urine Glucose (UA) Negative Urine Blood Trace H Urine Nitrite Negative Ur Leukocyte Esterase Negative Assessment and Plan Assessment & Plan (1) Annual physical exam: Code(s): Z00.00 - Encounter for general adult medical examination without abnormal findings Plan: Check labs OLMAN She had some (limited) non-fasting labs done back in January 2023 - results of these are reviewed and discussed with patient She is up-to-date with her colon cancer screening - repeat colonoscopy will be due in 2031 She has not had her gynecology exam and pap smear done since 2018; as she prefers to continue going to her previous corporate statistical financial analyst in [place] ([facility]), she is advised to try to reach out to them OLMAN to schedule her follow up appt She is due for her annual mammogram next month but is requesting to hold off on this as she still has some soreness over her left breast from her recent nipple reconstructive surgery with Dr. Pearce - is instructed to just call us for a mammogram order when she is cleared by Dr. Pearce for her mammogram (2) Pure hypercholesterolemia: Code(s): E78.00 - Pure hypercholesterolemia, unspecified Plan: Reinforced low cholesterol diet Patient is reminded that her cholesterol level was elevated when they were last checked in 2016 - total cholesterol was at 228 mg/dl and LDL cholesterol was at 157 mg/dl - and she has never had them rechecked again since Will send her for some labs to check her fasting lipids as well OLMAN for follow up (3) Asthma: Code(s): J45.909 - Unspecified asthma, uncomplicated Qualifiers: Asthma severity: moderate Asthma persistence: persistent Asthma complication type: uncomplicated Qualified Code(s): J45.40 - Moderate persistent asthma, uncomplicated Plan: Stable Continue Flovent 110 mcg 1 inhalation BID (Rx refilled) and Albuterol HFA 1 to 2 inhalations Q 6 hours as needed (4) Allergic rhinitis: Code(s): J30.9 - Allergic rhinitis, unspecified Qualifiers: Allergic rhinitis trigger: pollen Allergic rhinitis seasonality: seasonal Qualified Code(s): J30.1 - Allergic rhinitis due to pollen Plan: Continue Cetirizine 10 mg QD PRN and Fluticasone 50 mcg nasal spray QD PRN (5) GERD (gastroesophageal reflux disease): Comment: well controlled with ppi Discussed need for repeat-prior to colonoscopy at that time she declined-no worsening acid reflux, weight gain likely plays a role mod HH Reflux precautions, avoid culprits Code(s): K21.9 - Gastro-esophageal reflux disease without esophagitis Qualifiers: Esophagitis presence: without esophagitis Qualified Code(s): K21.9 - Gastro-esophageal reflux disease without esophagitis Plan: Dietary restrictions reinforced Continue Lansoprazole 30 mg QD; patient failed to respond to Omeprazole in the past (6) Polyarthralgia: Code(s): M25.50 - Pain in unspecified joint Plan: Follow up with rheumatology as scheduled (7) Chronic pain of both shoulders: Code(s): M25.511 - Pain in right shoulder; M25.512 - Pain in left shoulder; G89.29 - Other chronic pain Plan: Most likely due to fibromyalgia as well as due to her pendulous breasts - she has reported some improvement of her symptoms since her breast reduction surgery a few months ago She is again encouraged to try to exercise regularly to help manage her fibromyalgia symptoms better (8) Chronic thoracic back pain: Code(s): M54.6 - Pain in thoracic spine; G89.29 - Other chronic pain Qualifiers: Back pain laterality: bilateral Qualified Code(s): M54.6 - Pain in thoracic spine; G89.29 - Other chronic pain Plan: Most likely due to fibromyalgia as well as her pendulous breasts and she has reported some improvement of her symptoms since her breast reduction surgery a few months ago Continue Cyclobenzaprine 10 mg TID PRN (9) Onychomycosis of right great toe: Code(s): B35.1 - Tinea unguium Plan: Per request, will refer her to podiatry for further evaluation and management Plan Follow up in 4 months Orders: Orders Complete Blood Count Auto Diff Today D64.9 - Anemia, unspecified, Z00.00 - Encounter for general adult medical examination without abnormal findings Comprehensive [place]. Panel Fast Today E78.00 - Pure hypercholesterolemia, unspecified, Z00.00 - Encounter for general adult medical examination without abnormal findings Lipid Panel Today E78.00 - Pure hypercholesterolemia, unspecified, Z00.00 - Encounter for general adult medical examination without abnormal findings Vitamin D 25-OH Total Today E55.9 - Vitamin D deficiency, unspecified, Z00.00 - Encounter for general adult medical examination without abnormal findings TSH reflex Free T4 Today E78.00 - Pure hypercholesterolemia, unspecified, Z00.00 - Encounter for general adult medical examination without abnormal findings UA CC w/rflx Micro + Cult Today R30.0 - Dysuria, Z00.00 - Encounter for general adult medical examination without abnormal findings Referrals Podiatry Referral B35.1 - Tinea unguium, L60.0 - Ingrowing nail Medications: Changed From fluticasone propionate 110 mcg/actuation (Flovent HFA) 1 puff inhalation BID 30 days 12 grams 5RF To fluticasone propionate 110 mcg/actuation 1 puff inhalation BID 30 days 12 grams 5RF Coding Level of Care Code Est Pt Prev Care 40-64y(48466) Diagnoses Annual physical exam Z00.00 Pure hypercholesterolemia E78.00 Moderate persistent asthma without complication J45.40 Asthma severity: moderate Asthma persistence: persistent Asthma complication type: uncomplicated Seasonal allergic rhinitis due to pollen J30.1 Allergic rhinitis trigger: pollen Allergic rhinitis seasonality: seasonal Gastroesophageal reflux disease without esophagitis K21.9 Esophagitis presence: without esophagitis Polyarthralgia M25.50 Chronic pain of both shoulders M25.511; M25.512; G89.29 Chronic bilateral thoracic back pain M54.6; G89.29 Back pain laterality: bilateral Onychomycosis of right great toe B35.1 Additional Codes ANNE-MARIE-7 Assessment Billing - ANNE-MARIE-7 Assessment Tool: ANNE-MARIE-7 Assessment [id number] ([id number])
== END 2023-07-27 12:26 | disposition home or self-care (01) ==
PROVIDERS: PCP Internal Medicine; Visit Provider Internal Medicine
DX: Z00.00 Encounter for general adult medical examination without abnormal findings (principal); E78.00 Pure hypercholesterolemia, unspecified; J45.40 Moderate persistent asthma, uncomplicated; J30.1 Allergic rhinitis due to pollen; K21.9 Gastro-esophageal reflux disease without esophagitis; M25.50 Pain in unspecified joint; M25.511 Pain in right shoulder; M25.512 Pain in left shoulder; G89.29 Other chronic pain; M54.6 Pain in thoracic spine; B35.1 Tinea unguium
CPT/HCPCS: 99396

== ENCOUNTER 2023-11-25 10:36 | Outpatient (REF) | payer OTHER, SELFPAY ==
[2023-11-25 10:59] LABS: MANUAL DIFF FLAG NO
[2023-11-25 11:43] LABS: Basophils Percent Auto 0.4 % (0-2); Eosinophils Absolute Auto 0.1 X10*3/uL (0.0-0.4); Eosinophils Percent Auto 1.4 % (0-4); Hematocrit 42.2 % (37.0-47.0); Hemoglobin 14.1 g/dl (12.0-16.0); Imm Gran Abs Auto 0.02 X10*3/uL (0.00-0.03); Imm Gran Pct Auto 0.3 % (0.0-0.4); Lymphocytes Absolute Auto 2.1 X10*3/uL (1.2-4.9); Lymphocytes Percent Auto 28.5 % (20-40); Mean Corpuscular HGB Conc 33.4 g/dl (31.0-35.0); Mean Corpuscular Hemoglobin 30.1 pg (27.0-33.0); Mean Corpuscular Volume 90.2 fL (80.0-98.0); Mean Platelet Volume 10.3 fL (9.4-12.3); Monocytes Absolute Auto 0.5 X10*3/uL (0.1-1.2); Monocytes Percent Auto 6.8 % (2-11); Neutrophils Absolute Auto 4.6 x10*3/uL (2.0-8.3); Neutrophils Percent Auto 62.6 % (45-73); Platelet Count 382 X10*3/uL (160-400); Red Blood Count 4.68 X10*6/uL (4.20-5.50); Red Cell Distribution Width 13.6 % (11.0-16.0); White Blood Count 7.4 X10*3/uL (4.8-10.8)
[2023-11-25 12:03] LABS: Appearance Urine Clear; Color Urine Yellow; Glucose Urine UA Negative (Negative); Leukocyte Esterase Urine Negative (Negative); Nitrite Urine Negative (Negative); Specific Gravity - Urine 1.015 (1.005-1.025); Urine Blood Negative (Negative); Urine Ketones Negative (Negative); Urine Protein Negative (Neg-Trace)
[2023-11-25 12:27] LABS: Alanine Aminotransferase 25 U/L (0-31); Albumin Level 4.2 g/dL (3.5-5.0); Alkaline Phosphatase 71 U/L (39-117); Anion Gap 11 (12-20); Aspartate Amino Transferase 14 U/L (5-31); Bilirubin Total 0.3 mg/dL (0.0-1.0); Blood Urea Nitrogen 16 mg/dL (9-16); Calcium 10.2 mg/dL (8.4-10.2); Carbon Dioxide 28 mmol/L (22-29); Chloride 105 mmol/L (96-108); Cholesterol 261 mg/dL (<200); Estimated Glomerular Filt Rate > 60; Glucose Fasting 95 mg/dL (60-99); HDL Cholesterol 51 mg/dL (>40); LDL Cholesterol Calculated 173 mg/dL (<100); Potassium 4.1 mmol/L (3.3-5.1); Sodium 140 mmol/L (135-145); Total Protein 7.6 g/dL (6.5-8.0); Triglycerides 188 mg/dL (<150)
[2023-11-25 12:42] LABS: TSH reflex Free T4 1.41 uIU/mL (0.32-4.0); Vitamin D 25-OH Total 31.5 ng/mL (>30)
== END 2023-11-25 10:37 | disposition home or self-care (01) ==
LOC: HO.LAB 10:36
PROVIDERS: PCP Internal Medicine; Visit Provider Internal Medicine
DX: Z00.00 Encounter for general adult medical examination without abnormal findings (principal); E78.00 Pure hypercholesterolemia, unspecified; R30.0 Dysuria; D64.9 Anemia, unspecified; E55.9 Vitamin D deficiency, unspecified
CPT/HCPCS: 36415; 80053; 80061; 81003; 82306; 84443; 85025

== ENCOUNTER 2023-11-27 12:38 | Outpatient (AMB) | payer OTHER, SELFPAY ==
[2023-11-27 13:00] VITALS: BP 122/70; PULSE 90; O2SAT 98; BMI 23.5
--- NOTE | 2023-11-27 13:00 | A.OFFPC_ITS ---
Vital Signs 11/27/23 13:00 Height 5 ft 5 in Weight 141 lb BMI 23.5 BP 122/70 Blood Pressure Location Lt brachial Position Sitting Pulse 90 Pulse Source Pulse Oximeter Pulse Oximetry (%) 98 Oxygen Delivery Method Room Air Intake Visit Reasons: hyperlipidemia Communications Program Manager Required: No Accompanied by: Friend Allergies dicyclomine Allergy (Severe, Verified 11/27/23 13:09) ANAPHYLAXIS coconut oil Allergy (Unknown, Verified 11/27/23 13:09) Unknown house dust Allergy (Unknown, Verified 11/27/23 13:09) unknown pollen extracts Allergy (Unknown, Verified 11/27/23 13:09) Unknown cimetidine [From TAGAMET] Adverse Reaction (Intermediate, Verified 11/27/23 13:09) NAUSEA AND VOMITING sucralfate [Carafate] Adverse Reaction (Intermediate, Verified 11/27/23 13:09) Abdominal Pain apple, kiwi,pears, peach, avoc Allergy (Unknown, Uncoded 11/27/23 13:09) Unknown fruits Allergy (Unknown, Uncoded 11/27/23 13:09) Unknown soil Allergy (Unknown, Uncoded 11/27/23 13:09) Unknown Simethicone Adverse Reaction (Intermediate, Uncoded 11/27/23 13:09) cramping, abdominal Medication List - Last Reconciled 11/27/23 by Gabriel Vang MD cetirizine 10 mg PO DAILY PRN 90 days cyclobenzaprine 10 mg PO TID PRN 30 days diphenhydramine HCl (Benadryl Allergy) 25 mg PO Q6H PRN epinephrine (EpiPen) 0.3 mg (0.3 mL) IM Q10M PRN fluticasone propionate 50 mcg/actuation (Flonase Allergy Relief) 1 spray intranasal DAILY hydroxyzine pamoate (Vistaril) 25 mg PO TID PRN ketotifen fumarate 0.025%(0.035%) (Allergy Eye (ketotifen)) 1 drp ophthalmic (eye) BID lansoprazole 30 mg PO DAILY 90 days methylcellulose (laxative) (Citrucel) 500 mg PO TID mometasone 100 mcg/actuation (Asmanex HFA) 2 puffs inhalation BID Tobacco use date assessed: 07/27/23 Dental Screening Dental Screen Date: 07/27/23 HPI hyperlipidemia HPI Details Patient comes in today for her follow up visit States that she feels okay Still has on and off back pains but states that they have been manageable lately She denies any headaches or dizziness Denies any chest pains, no SOB No nausea/vomiting, no abdominal pain No change in bowel habits noted Needs several of her Rx refilled She had her follow up labs done a couple of days ago - to discuss her results [facility] Medical History Pure hypercholesterolemia IBS (irritable bowel syndrome) Overweight (BMI 25.0-29.9) GERD (gastroesophageal reflux disease) Asthma Allergic rhinitis Surgical History Hx of colonoscopy History of colposcopy History of cholecystectomy History of esophagogastroduodenoscopy (EGD) Family History Father Hypertension Mother Hypertension Asthma Family/Other Prostate cancer Colon cancer Lung cancer Stomach cancer Social History Household Members: Spouse Both parents involved: No Caregiver staying overnight: No Housing: House Are you a primary infant childcare provider to a significant other at home: No Do you presently have visiting nurse or other home services: No 75 years or older and lives alone: No Alcohol intake: never Patient Tobacco Use Status: Never used Tobacco e-Cigarette/Vaping Use: Never Used Second Hand Smoke Exposure: No service: No Current occupational status: disabled Cognitive needs: No Hearing needs: No Vision needs: Yes Questionnaire Thrive Questionnaire Date Thrive assessed: 07/27/23 THRIVE Score: 0 ANNE-MARIE-7 AMB Questionnaire ANNE-MARIE-7 Date ANNE-MARIE - 7 assessed: 07/27/23 (Pt on antiexy medication) Source: Developed by Drs. Rowdy Quinn, Fanny Grant, Masood Arellano and colleagues, with an educational juventino from [employer]. Review of Systems Const Denies chills, Denies fatigue, Denies fever(s) and Denies headache(s) ENT Denies dysphagia, Denies dizziness, Denies otalgia, Denies headache(s), Reports neck pain, Denies odynophagia and Denies sore throat Card Denies chest pain, Denies palpitations and Denies dyspnea Resp Denies cough and Denies dyspnea GI Denies abdominal pain, Denies constipation, Denies dysphagia, Denies heartburn, Denies diarrhea, Denies nausea, Denies odynophagia and Denies vomiting Denies difficulty voiding, Denies nocturia, Denies dysuria and Denies urinary urgency Musc Reports back pain, Reports arthralgias (bilateral shoulders) and Reports neck pain Skin/Breast Denies rash Neuro Denies dizziness and Denies headache(s) Endo Denies fatigue and Denies palpitations Physical exam (Primary Care) Vital Signs: Last Vital Signs Pulse 90 11/27/23 13:00 BP 122/70 11/27/23 13:00 Pulse Ox 98 11/27/23 13:00 Oxygen Delivery Method Room Air 11/27/23 13:00 BMI result Body Mass Index 23.5 Tobacco/Smoking Status: Tobacco use Status Tobacco use date assessed 07/27/23 11/27/23 13:02 Patient Tobacco Use Status Never used Tobacco 11/27/23 13:02 e-Cigarette/Vaping Use Never Used 11/27/23 13:02 Thrive Assessment: Date of Thrive Assessment Date Thrive assessed 07/27/23 11/27/23 13:02 Const General: no acute distress and alert HENMT Ears: TM's normal bilaterally and EAC's normal Throat: Yes posterior oropharynx normal and Yes tonsils normal (no TP congestion) Neck Neck: Yes no lymphadenopathy and Yes supple Resp Auscultation: clear to auscultation bilaterally, no rales and no wheezes Cardio Rate: regular rate Rhythm: regular rhythm Heart sounds: no murmurs GI Palpation (GI): Soft to palpation and nontender Auscultation: normal bowel sounds General: Yes no CVA tenderness Back/Spine/Pelvis Back: no CVA tenderness Thoracic/Lumbar Spine: lumbar spinal tenderness (mild) Skin Rashes: no rashes Extrem General: Yes no clubbing, cyanosis or edema Results Reviewed Results Reviewed: Laboratory Tests 11/25/23 11/25/23 10:55 10:59 WBC 7.4 Hgb 14.1 Hct 42.2 Plt Count 382 Sodium 140 Potassium 4.1 Creatinine 0.78 Estimated GFR > 60 Fasting Glucose 95 Calcium 10.2 D AST 14 ALT 25 Triglycerides 188 H Cholesterol 261 H LDL Cholesterol, Calc 173 H HDL Cholesterol 51 25-OH Vitamin D Total 31.5 TSH 1.41 Ur Specific [place] 1.015 Urine Protein Negative Urine Glucose (UA) Negative Urine Blood Negative Urine Nitrite Negative Ur Leukocyte Esterase Negative Assessment and Plan Assessment & Plan (1) Pure hypercholesterolemia: Code(s): E78.00 - Pure hypercholesterolemia, unspecified Plan: Results of her labs done a couple of days ago reviewed and discussed with patient - have advised patient that her cholesterol levels are still elevated and are slightly higher than they were back in 2016, when they were last checked prior to a few days ago Reinforced low cholesterol diet Will have her recheck her labs and fasting lipids in 4 months for follow up - advised her that if her cholesterol numbers still have not improved much by then with diet modification, then she should likely consider starting on some Rx to help lower her cholesterol levels (2) Asthma: Code(s): J45.909 - Unspecified asthma, uncomplicated Qualifiers: Asthma severity: moderate Asthma persistence: persistent Asthma complication type: uncomplicated Qualified Code(s): J45.40 - Moderate persistent asthma, uncomplicated Plan: Stable Continue Asmanex 100 mcg 2 inhalations BID (Rx refilled) and Albuterol HFA 1 to 2 inhalations Q 6 hours as needed (3) Allergic rhinitis: Code(s): J30.9 - Allergic rhinitis, unspecified Qualifiers: Allergic rhinitis trigger: pollen Allergic rhinitis seasonality: seasonal Qualified Code(s): J30.1 - Allergic rhinitis due to pollen Plan: Continue Cetirizine 10 mg QD PRN and Fluticasone 50 mcg nasal spray QD PRN (4) GERD (gastroesophageal reflux disease): Comment: well controlled with ppi Discussed need for repeat-prior to colonoscopy at that time she declined-no worsening acid reflux, weight gain likely plays a role mod HH Reflux precautions, avoid culprits Code(s): K21.9 - Gastro-esophageal reflux disease without esophagitis Qualifiers: Esophagitis presence: without esophagitis Qualified Code(s): K21.9 - Gastro-esophageal reflux disease without esophagitis Plan: Dietary restrictions reinforced Continue Lansoprazole 30 mg QD - patient failed to respond to Omeprazole in the past (5) Polyarthralgia: Code(s): M25.50 - Pain in unspecified joint Plan: Follow up with rheumatology as scheduled (6) Chronic pain of both shoulders: Code(s): M25.511 - Pain in right shoulder; M25.512 - Pain in left shoulder; G89.29 - Other chronic pain Plan: Most likely due to fibromyalgia as well as due to her pendulous breasts - she has reported some improvement of her symptoms since her breast reduction surgery a few months ago She is again encouraged to try to exercise regularly to help manage her fibromyalgia symptoms better (7) Chronic thoracic back pain: Code(s): M54.6 - Pain in thoracic spine; G89.29 - Other chronic pain Qualifiers: Back pain laterality: bilateral Qualified Code(s): M54.6 - Pain in thoracic spine; G89.29 - Other chronic pain Plan: Most likely due to fibromyalgia as well as her pendulous breasts and she has reported some improvement of her symptoms since her breast reduction surgery a few months ago Continue Cyclobenzaprine 10 mg TID PRN Plan Follow up in 4 months Orders: Orders Comprehensive [place]. Panel Fast 4 Months E78.00 - Pure hypercholesterolemia, unspecified Lipid Panel 4 Months E78.00 - Pure hypercholesterolemia, unspecified TSH reflex Free T4 4 Months E78.00 - Pure hypercholesterolemia, unspecified Medications: Changed From fluticasone propionate 50 mcg/actuation (Flonase Allergy Relief) administer into each nostril 1 spray intranasal DAILY To fluticasone propionate 50 mcg/actuation (Flonase Allergy Relief) administer into each nostril 1 spray intranasal DAILY PRN 16 grams 5RF allergy symptoms Refilled cetirizine 10 mg PO DAILY 90 days PRN 90 tabs 3RF allergy symptoms hydroxyzine pamoate (Vistaril) 25 mg PO TID PRN 90 caps 0RF anxiety cyclobenzaprine 10 mg PO TID 30 days PRN 90 tabs 2RF muscle spasms/pain lansoprazole 30 mg PO DAILY 90 days 90 caps 3RF mometasone 100 mcg/actuation (Asmanex HFA) 2 puffs inhalation BID 13 grams 3RF Coding Level of Care Code Est Pt Level 4 (71565) Diagnoses Pure hypercholesterolemia E78.00 Moderate persistent asthma without complication J45.40 Asthma severity: moderate Asthma persistence: persistent Asthma complication type: uncomplicated Seasonal allergic rhinitis due to pollen J30.1 Allergic rhinitis trigger: pollen Allergic rhinitis seasonality: seasonal Gastroesophageal reflux disease without esophagitis K21.9 Esophagitis presence: without esophagitis Polyarthralgia M25.50 Chronic pain of both shoulders M25.511; M25.512; G89.29 Chronic bilateral thoracic back pain M54.6; G89.29 Back pain laterality: bilateral
== END 2023-11-27 13:22 | disposition home or self-care (01) ==
PROVIDERS: PCP Internal Medicine; Visit Provider Internal Medicine
DX: E78.00 Pure hypercholesterolemia, unspecified (principal); J45.40 Moderate persistent asthma, uncomplicated; J30.1 Allergic rhinitis due to pollen; K21.9 Gastro-esophageal reflux disease without esophagitis; M25.50 Pain in unspecified joint; M25.511 Pain in right shoulder; M25.512 Pain in left shoulder; G89.29 Other chronic pain; M54.6 Pain in thoracic spine
CPT/HCPCS: 99214